=== PATIENT | male | born 1975 | race American Indian/Alaskan Native ===

== ENCOUNTER 2021-10-19 08:55 | Emergency (ER) | payer BC ==
--- NOTE | 2021-10-19 09:46 | Emergency Department Report ---
ED General Adult HPI - General Chief complaint: Chest Pain Stated complaint: CHEST PAIN Time Seen by Provider: 10/19/21 09:18 Source: patient Mode of arrival: Ambulatory Limitations: No Limitations - History of Present Illness Initial comments: Patient is 45 years old male with no significant past medical history. Patient sent to the emergency room by his primary care physician for DVT work-up and possible pulmonary embolism. Patient had orthopedic surgery last week to the right leg and has been using crutches since then. Patient presented to his primary care physician complaining of right-sided chest pain. Patient stated that since his fall last week he started having aching pain however his chest pain this time is different. He denied any shortness of breath, fever, chills or cough. - Related Data Allergies Allergy/AdvReac Type Severity Reaction Status Date / Time No Known Allergies Allergy Verified 10/19/21 09:01 ED Review of Systems ROS: Stated complaint: CHEST PAIN Other details as noted in HPI Comment: All other systems reviewed and negative Constitutional: denies: chills, fever Respiratory: denies: cough, shortness of breath, SOB with exertion Cardiovascular: chest pain. denies: palpitations Gastrointestinal: denies: abdominal pain, nausea, vomiting, diarrhea, constipation, hematemesis, melena, hematochezia Musculoskeletal: denies: back pain Neurological: denies: headache, weakness, numbness, paresthesias, confusion ED Physical Exam - General Limitations: No Limitations General appearance: alert, in no apparent distress - Head Head exam: Present: atraumatic, normocephalic, normal inspection - Eye Eye exam: Present: normal appearance, PERRL - ENT ENT exam: Present: normal exam, normal orophraynx, mucous membranes moist - Neck Neck exam: Present: normal inspection, full ROM. Absent: tenderness, menin gismus - Respiratory Respiratory exam: Present: normal lung sounds bilaterally - Cardiovascular Cardiovascular Exam: Present: regular rate, normal rhythm, normal heart sounds - GI/Abdominal GI/Abdominal exam: Present: soft, normal bowel sounds. Absent: distended, tenderness, guarding, rebound, rigid, organomegaly, mass, bruit, pulsatile mass, hernia - Extremities Exam Extremities exam: Present: normal capillary refill, other (Right leg in a cast). Absent: tenderness - Back Exam Back exam: Present: normal inspection, full ROM. Absent: CVA tenderness (R), CVA tenderness (L) - Neurological Exam Neurological exam: Present: alert, oriented X3, CN II-XII intact, normal gait, reflexes normal. Absent: motor sensory deficit - Psychiatric Psychiatric exam: Present: normal mood - Skin Skin exam: Present: warm, intact, normal color ED Medical Decision Making - Lab Data Result diagrams: 10/19/21 10:55 10/19/21 10:55 - Radiology Data Radiology results: report reviewed - Medical Decision Making Patient is 45 years old male with no significant past medical history. Patient sent to the emergency room by his primary care physician for DVT work-up and possible pulmonary embolism. Patient had orthopedic surgery last week to the right leg and has been using crutches since then. Patient presented to his primary care physician complaining of right-sided chest pain. Patient stated that since his fall last week he started having aching pain however his chest pain this time is different. He denied any shortness of breath, fever, chills or cough. Bilateral Doppler ultrasound is negative for DVT. CTA is pending Critical care attestation.: If time is entered above; I have spent that time in minutes in the direct care of this critically ill patient, excluding procedure time. ED Disposition Clinical Impression: Acute chest pain Disposition: HOME / SELF CARE / HOMELESS Is pt being admited?: No Condition: Stable Instructions: Chest Pain (ED), Nonspecific Chest Pain, Adult Referrals: PRIMARY CARE, [Primary Care Provider] - 3-5 Days
--- NOTE | 2021-10-19 10:43 | Vascular Lab Report ---
DUPLEX DOPPLER LOWER EXTREMITY VEINS, BILATERAL INDICATION / CLINICAL INFORMATION: Chest pain, recent immobilization.. TECHNIQUE: Duplex doppler imaging was performed through the veins of both lower extremities using venous maria d peter and other maneuvers. COMPARISON: None available. FINDINGS: RIGHT COMMON FEMORAL VEIN: Negative. RIGHT FEMORAL VEIN: Negative. RIGHT POPLITEAL VEIN: Negative. RIGHT CALF VEINS: Not visualized due to overlying bandage LEFT COMMON FEMORAL VEIN: Negative. LEFT FEMORAL VEIN: Negative. LEFT POPLITEAL VEIN: Negative. LEFT CALF VEINS: Negative. ADDITIONAL FINDINGS: None. IMPRESSION: 1. No sonographic evidence for DVT in either lower extremity. Signer Name: Terrell Cummings MD Signed: 10/19/2021 10:39 AM Workstation Name: [id number]
[2021-10-19 11:16] LABS: Basophils % (Auto) 0.7 % (0.0-1.8); Eosinophils # (Auto) 0.2 K/mm3 (0.0-0.4); Eosinophils % (Auto) 2.6 % (0.0-4.3); Hematocrit 44.9 % (35.5-45.6); Hemoglobin 14.1 gm/dl (11.8-15.2); Lymphocytes # (Auto) 1.6 K/mm3 (1.2-5.4); Lymphocytes % (Auto) 24.1 % (13.4-35.0); Mean Corpuscular HGB Conc 31 % (32-34); Mean Corpuscular Volume 86 fl (84-94); Monocytes # (Auto) 0.6 K/mm3 (0.0-0.8); Monocytes % (Auto) 9.2 % (0.0-7.3); Platelet Count 422 K/mm3 (140-440)
[2021-10-19 11:26] LABS: INR 0.91 (0.87-1.13)
[2021-10-19 11:27] LABS: Partial Thromboplastin Time 26.4 Sec. (24.2-36.6)
[2021-10-19 11:34] LABS: BUN/Creatinine Ratio 16; Blood Urea Nitrogen 13 mg/dL (9-20); Calcium 9.4 mg/dL (8.4-10.2); Hemolysis Index 5
--- NOTE | 2021-10-19 15:23 | Cat Scan Report ---
CTA CHEST WITH IV CONTRAST INDICATION: CHEST PAIN OMNI 350 100 ML. TECHNIQUE: Axial CT images were obtained through the chest after injection of 100 mL Omnipaque 350 IV contrast. 3 plane MIP reconstructions were produced. All CT scans at this location are performed using CT dose reduction for ALARA by means of automated exposure control. COMPARISON: None available. FINDINGS: Pulmonary Arteries: No pulmonary emboli. Lungs: No significant abnormality. Trachea and Bronchi: No significant abnormality. Heart and Pericardium: No significant abnormality. Vasculature: No significant abnormality. Lymphatics: No lymphadenopathy. Additional Findings: None. Upper Abdomen: No acute findings. Skeletal Structures: No acute findings or aggressive bone lesions. IMPRESSION: 1. No CT evidence for pulmonary embolism. 2. No acute findings. Signer Name: Terrell Cummings MD Signed: 10/19/2021 3:18 PM Workstation Name: [id number]
--- NOTE | 2021-10-20 12:20 | Electrocardiograph Report ---
[facility] Test Date: 2021-10-19 Test Time: 09:03:55 Pat Name: GIOVANNI HARGROVE Department: Room: Gender: M Certified Driver Examiner: ARSENIO : 1975 Requested By: ALAN LA Order Number: [id number] Reading MD: Raciel Hodges Measurements Intervals [place] Rate: 75 P: 61 MO: 184 QRS: 69 QRSD: 99 T: 33 QT: 354 QTc: 396 Interpretive Statements Sinus rhythm No previous ECG available for comparison Electronically Signed On 10-20-2021 12:19:45 EST by Raciel Hodges
== END 2021-10-19 17:01 | disposition home or self-care (01) ==
LOC: ED 08:55
DX: R07.9 Chest pain, unspecified (principal)
CPT/HCPCS: 36415; 71275; 80048; 84484; 85025; 85379; 85610; 85730; 93005; 93970; 99284; Q9967